=== PATIENT | female | born 1995 | race Caucasian/White ===

== ENCOUNTER 2024-02-01 11:55 | Inpatient (IN) | payer OTHER, SELFPAY ==
--- NOTE | ~2024-02-01 | CT_ITS ---
EXAMINATION: CT ABDOMEN AND PELVIS WITH CONTRAST CLINICAL INFORMATION: Abdominal pain, question appendectomy COMPARISON: None available. TECHNIQUE: Multidetector volumetric images were obtained from the superior aspect of the liver through the pubic symphysis following administration 85 mL of Omnipaque 350 intravenous contrast. Sagittal and coronal reformatted images were obtained on the technologist's workstation. Oral contrast: No This CT examination was performed using dose optimization techniques as appropriate, variously including the following: *Automated exposure control *Adjustment of mA and/or kV according to patient size (this includes techniques or standardized protocols for targeted exams where dose is matched to indication/reason for exam; i.e. extremities or head) *Use of iterative reconstruction technique DLP: 748 mGy-cm FINDINGS: LUNG BASES: The visualized lung bases are unremarkable. LIVER, GALLBLADDER, AND BILIARY TREE: The liver is normal in size, shape, and attenuation. No focal hepatic lesion or biliary ductal dilatation is present. The gallbladder is unremarkable with no evidence of radiopaque gallstones, gallbladder wall thickening, or obvious pericholecystic inflammatory changes. PANCREAS: Unremarkable. SPLEEN: Unremarkable. ADRENAL GLANDS: Unremarkable. KIDNEYS AND URETERS: The kidneys are normal in size, shape, and attenuation. A punctate nonobstructing calculus is evident in the upper pole the right kidney. A few tiny bilateral low density renal lesions are likely cysts though too small to characterize. No hydronephrosis, hydroureter. No perinephric stranding. BLADDER: Unremarkable. GASTROINTESTINAL TRACT: There is submucosal hypodensity within a relatively featureless descending colon. The small bowel and appendix images normally. ABDOMINAL WALL: No significant hernia is appreciated. LYMPH NODES: Normal. VASCULAR: Unremarkable. PELVIC VISCERA: Unremarkable. OSSEOUS STRUCTURES: Unremarkable. CT/CT abdomen pelvis w IV con IMPRESSION: 1. No CT evidence of acute appendicitis. 2. Featureless descending colon with submucosal hypodensity, which can be seen with inflammatory bowel disease. Clinical correlation is advised. 3. Punctate nonobstructing right renal upper pole calculus. Fleischner guidelines were followed.
[2024-02-01 12:02] VITALS: BP 121/71; PULSE 65; RESP 16; TEMP 36.8; O2SAT 99; BMI 29.9
--- NOTE | 2024-02-01 12:04 | ED_ITS ---
HPI - General Adult General Chief complaint: Abdominal Pain Stated complaint: Vomiting, diarrhea Time Seen by Provider: 02/01/24 14:48 Source: patient Mode of arrival: ambulatory Limitations: no limitations History of Present Illness HPI narrative: 28-year-old female without significant medical history presents with nausea, vomiting, diarrhea and diffuse abdominal discomfort that started yesterday. Patient reports she has not been able to eat or drink point as she does not feel well and does not have much of an appetite. Has noted blood in her stool and in the toilet a few times. She reports that yesterday at home she felt like she may have had a fever however did not take her temperature. No one is sick at home. Denies chest pain, shortness of breath, hematemesis,changes in urinary habits or bowel habits, headache, vision changes, dizziness. Smokes marijuanna daily. No recent antibiotics Related Data Allergies Allergy/AdvReac Type Severity Reaction Status Date / Time No Known Allergies Allergy Verified 02/01/24 12:07 Review of Systems 2 Review of Systems: Yes all other systems are reviewed and are negative PMFSH Past Medical History Attestation statement: The following information was validated with the patient. Source: old records reviewed and nursing notes reviewed Social History Social History Alcohol intake: current Smoked in Last 30 Days: No Use of substances other than those prescribed or required for medical reasons: Yes Substance Use Type: Marijuana Advance Directives: No Advance Directives Information Provided: No Patient : No Physical Exam ED Vital Signs: Vital Signs - 24 hr 02/01/24 12:02 02/01/24 15:00 Temperature 98.3 F Pulse Rate 65 69 Respiratory Rate 16 12 Blood Pressure 121/71 126/72 Pulse Oximetry 99 99 Oxygen Delivery Method Room Air Room Air BMI result Body Mass Index 29.9 vss Appearance: Alert.? Oriented X3.? No acute distress.? Head: Normocephalic, atraumatic, no step-offs or deformities Eyes: Pupils equal, round and reactive to light.? Neck: Normal inspection.? Neck supple.? CVS: Normal heart rate and rhythm.? Pulses normal.? Respiratory: No respiratory distress.? Breath sounds normal.? Abdomen: Soft and diffuse abdominal discomfort .? Skin: Skin warm and dry.? Normal skin color.? Normal skin turgor.? Extremities: No lower extremity edema.? No calf ttp. 5/5 strength to bilateral upper and lower extremities Neuro: Oriented X 3.? No motor deficit.? No sensory deficit. CN 2-12 intact Course Course Course Narrative: RME- 28 year old female presents for evaluation of left sided abdominal pain and vomiting and diarrhea since last night. Plan for virals wabs and labs, HCG Reevaluation(s) Reevaluation #1: CBC w/ leukocytosis and left shift ? reactive from n/v. Chemistry unremarkable. Lipase wnl. BHCG -. flu/covid/rsv negative. UA and abd ct pending. Time: 15:01 Reevaluation #2: I did discuss this case with GI Dr. Beebe who recommends adding GI studies, and C diff. Patient will likely need a colonoscopy. Since she is having issues with tolerating food by mouth GI recommends hospital admission they will follow while in the hospital. No indication for antibiotics at this time. UA pending. Stool studies pending Time: 16:03 Medications Administered Generic Name Dose Route Start Last Admin Trade Name Freq PRN Reason Stop Dose Admin Sodium Chloride 1,000 mls @ 999 mls/hr 02/01/24 15:00 02/01/24 15:27 Ns IV 02/01/24 16:00 999 mls/hr .[id number] CHAI Administration Discontinued Medications Generic Name Dose Route Start Last Admin Trade Name Freq PRN Reason Stop Dose Admin Iohexol 100 ml 02/01/24 15:18 02/01/24 15:18 Iohexol 350 Mg/Ml 100 Ml Infus..Btl IV 02/01/24 15:19 85 ml ONCE ONE Administration Ondansetron HCl 4 mg 02/01/24 15:00 02/01/24 15:27 Ondansetron Hcl 4 Mg/2 Ml Vial IVPUSH 02/01/24 15:01 4 mg ONCE ONE Administration Medical Decision Making Medical Decision Making [facility] Narrative: 1456 28 year old female presents w/ abd pain, nausea, vomiting, diarrhea, poor po intake since last night PE- diffuse abd discomfort Hx and PE concerning for possible viral illness, obstruction, gastroenteritis, flu versus COVID versus RSV vs ibs vs ibd. Unlikely acute abdomen. Will rule out pancreatitis, diverticulitis. Unlikely cholecystitis, appendicitis. Will rule out metabolic derangements, urinary tract infection Plan labs, urine, imaging, viral Differential Diagnosis Differential Diagnoses: The differential diagnosis associated with the presentation includes Hx and PE concerning for possible viral illness, obstruction, gastroenteritis, flu versus COVID versus RSV vs ibs vs ibd. . Unlikely acute abdomen. Will rule out pancreatitis, diverticulitis. Unlikely cholecystitis, appendicitis. Will rule out metabolic derangements, urinary tract infection Admission/Observation Consideration of admission/observation: Escalation of care including admission/observation considered Consult Healthcare Provider Management of the patient was discussed with: Saw Superintendent (GI ) Lab Data MDM Lab Attestation statement: I reviewed the patient's lab results. 02/01/24 12:12 02/01/24 12:12 Labs: Lab Results 02/01/24 02/01/24 02/01/24 Range/Units 12:12 14:56 15:07 WBC 16.8 H (4.8-10.8) X10*3/uL RBC 4.67 (4.20-5.50) X10*6/uL Hgb 13.4 (12.0-16.0) g/dl Hct 38.5 (37.0-47.0) % MCV 82.4 (80.0-98.0) fL MCH 28.7 (27.0-33.0) pg MCHC 34.8 (31.0-35.0) g/dl RDW 13.5 (11.0-16.0) % Plt Count 413 H (160-400) X10*3/uL MPV 9.6 (9.4-12.3) fL Immature Gran % (Auto) 0.4 (0.0-0.4) % Neut % (Auto) 90.5 H (45-73) % Lymph % (Auto) 6.2 L (20-40) % Falls % (Auto) 2.7 (2-11) % Eos % (Auto) 0.0 (0-4) % Baso % (Auto) 0.2 (0-2) % Lymph # (Auto) 1.0 L (1.2-4.9) X10*3/uL Falls # (Auto) 0.5 (0.1-1.2) X10*3/uL Eos # (Auto) 0.0 (0.0-0.4) X10*3/uL Baso # (Auto) 0.0 (0.0-0.2) X10*3/uL Abs Immat Gran (auto) 0.07 H (0.00-0.03) X10*3/uL Absolute Neuts (auto) 15.2 H (2.0-8.3) x10*3/uL Absolute Nucleated RBC 0.000 (0.0-0.012) X10*3/uL Nucleated RBC % (auto) 0.0 (0.0-0.2) /100WBC Smear Tech's Comments VERIFIED Sodium 141 (135-145) mmol/L Potassium 4.1 (3.3-5.1) mmol/L Chloride 111 H (96-108) mmol/L Carbon Dioxide 19 L (22-29) mmol/L Anion Gap 15 (12-20) BUN 9 (9-16) mg/dL Creatinine 0.75 (0.5-1.4) mg/dL Estim Creat Clear Calc 119.7 Estimated GFR > 60 Random Glucose 129 H (60-115) mg/dL Lactic Acid 1.0 (0.5-2.0) mmol/L Calcium 9.9 (8.4-10.2) mg/dL Total Bilirubin 0.4 (0.0-1.0) mg/dL AST 17 (5-31) U/L ALT 15 (0-31) U/L Alkaline Phosphatase 76 (39-117) U/L Total Protein 8.2 H (6.5-8.0) g/dL Albumin 4.7 (3.5-5.0) g/dL Lipase 19 (8-78) U/L Beta HCG, Quant < 2 mIU/mL Stool Occult Blood NEGATIVE (NEGATIVE) Influenza Type A (PCR) NEGATIVE (Negative) Influenza Type B (PCR) NEGATIVE (Negative) RSV RNA Qual (PCR) NEGATIVE (Negative) SARS-CoV-2 RNA (RT-PCR) NEGATIVE (Negative) Independent Interpretation I performed an independent interpretation of an: CT Scan Radiology Impression Discussion of test interpretation with radiology: I have reviewed the radiologist's reading. External Record Review External record reviewed: Inpatient record, Office record, Outpatient record, Prior outpatient labs, Prior outpatient radiology, Primary care record and Outside ED record Critical Care Time Critical Care Time Critical Care Time: Yes Total Critical Care Time: 40 Attestation: I attest to this time spent taking care of the patient, obtaining history, physical, reviewing labs, imaging, speaking to my attending, speaking to specialist. Discharge Plan Discharge Clinical Impression: Abdominal pain, Nausea & vomiting Patient Disposition: Admitted As Inpatient
[2024-02-01 12:18] LABS: Basophils Percent Auto 0.2 % (0-2); Hematocrit 38.5 % (37.0-47.0); Hemoglobin 13.4 g/dl (12.0-16.0); Imm Gran Abs Auto 0.07 X10*3/uL (0.00-0.03); Imm Gran Pct Auto 0.4 % (0.0-0.4); Lymphocytes Percent Auto 6.2 % (20-40); MANUAL DIFF FLAG SCAN; Mean Corpuscular HGB Conc 34.8 g/dl (31.0-35.0); Mean Corpuscular Hemoglobin 28.7 pg (27.0-33.0); Mean Corpuscular Volume 82.4 fL (80.0-98.0); Mean Platelet Volume 9.6 fL (9.4-12.3); Monocytes Absolute Auto 0.5 X10*3/uL (0.1-1.2); Monocytes Percent Auto 2.7 % (2-11); Neutrophils Absolute Auto 15.2 x10*3/uL (2.0-8.3); Neutrophils Percent Auto 90.5 % (45-73); Platelet Count 413 X10*3/uL (160-400); Red Blood Count 4.67 X10*6/uL (4.20-5.50); Red Cell Distribution Width 13.5 % (11.0-16.0); SCAN SMEAR FLAG 1; White Blood Count 16.8 X10*3/uL (4.8-10.8)
[2024-02-01 12:34] LABS: SLIDE REVIEW VERIFIED
[2024-02-01 12:39] LABS: Alanine Aminotransferase 15 U/L (0-31); Albumin Level 4.7 g/dL (3.5-5.0); Alkaline Phosphatase 76 U/L (39-117); Anion Gap 15 (12-20); Aspartate Amino Transferase 17 U/L (5-31); Bilirubin Total 0.4 mg/dL (0.0-1.0); Blood Urea Nitrogen 9 mg/dL (9-16); Calcium 9.9 mg/dL (8.4-10.2); Carbon Dioxide 19 mmol/L (22-29); Chloride 111 mmol/L (96-108); Creatinine Clr Calc Pharmacy 119.7; Estimated Glomerular Filt Rate > 60; Glucose Random 129 mg/dL (60-115); Lipase 19 U/L (8-78); Potassium 4.1 mmol/L (3.3-5.1); Sodium 141 mmol/L (135-145); Total Protein 8.2 g/dL (6.5-8.0)
[2024-02-01 12:40] LABS: HCG Quantitative < 2 mIU/mL
[2024-02-01 13:23] LABS: Influenza A PCR NEGATIVE (Negative); Influenza B PCR NEGATIVE (Negative); Resp Syncy Virus RNA Qual PCR NEGATIVE (Negative); SARS COV2 PCR INHOUSE NEGATIVE (Negative)
[2024-02-01 15:00] VITALS: BP 126/72; PULSE 69; RESP 12; O2SAT 99
[2024-02-01 15:14] LABS: OBS Int Ctl Valid YES; OBS1 NEGATIVE (NEGATIVE)
[2024-02-01] MEDS: iohexoL 350 MG/ML 100 ML INFUS..BTL IV (15:18)
[2024-02-01] MEDS: ondansetron HCL 4 MG/2 ML VIAL IVPUSH (15:27)
[2024-02-01] MEDS: 0.9 % Sodium Chloride 1,000 ML 999 ML IV (15:27)
--- NOTE | 2024-02-01 16:33 | PHA.MEDREC ---
Pharmacy Consult ? Medication Reconciliation Pharmacy has completed the medication reconciliation. spoke with patient to confirm medications.
[2024-02-01 16:43] LABS: C Reactive Protein 0.11 mg/dL (< or = 0.50)
--- NOTE | 2024-02-01 17:19 | P.HPHOSP_ITS ---
History of Present Illness Date of Service: 02/01/24 Chief Complaint: bloody stools/intractable vomiting 28-year-old female without significant medical history presents with nausea, vomiting, diarrhea and diffuse abdominal discomfort that started yesterday. Patient reports she has not been able to eat or drink point as she does not feel well and does not have much of an appetite. Has noted blood in her stool and in the toilet a few times. She reports that yesterday at home she felt like she may have had a fever however did not take her temperature. No one is sick at home. Denies chest pain, shortness of breath, hematemesis,changes in urinary habits or bowel habits, headache, vision changes, dizziness. Smokes marijuanna daily. No recent antibiotics In ER, unable to keep anything down orally. Will be admitted for IV volume repletion and GI consult in a.m. Review of Systems 2 Review of Systems: Denies chest pain Denies shortness of breath Admits nausea vomiting diarrhea Denies fever chills PMFSH Social History Alcohol intake: current Smoked in Last 30 Days: No Use of substances other than those prescribed or required for medical reasons: Yes Substance Use Type: Marijuana Advance Directives: No Advance Directives Information Provided: No Patient : No Meds Allergies Allergy/AdvReac Type Severity Reaction Status Date / Time No Known Allergies Allergy Verified 02/01/24 12:07 Active Medications: Current Medications Bupropion HCl (Bupropion Hcl Xl 150 Mg Tab.Er.24h) 150 mg PO DAILY [facility] Sertraline HCl (Sertraline Hcl 100 Mg Tablet) 200 mg PO DAILY [facility] Home Medications Medication Instructions Recorded Confirmed Last Taken Type bupropion HCl 150 mg 24 hr tablet, 150 mg PO QAM 02/01/24 02/01/24 Unknown History extended release sertraline 100 mg tablet 200 mg PO DAILY 02/01/24 02/01/24 Unknown History Physical Exam 2 Vital Signs and Narrative: Vital Signs: Last Vital Signs Temp 98.3 F 02/01/24 12:02 Pulse 69 02/01/24 15:00 Resp 12 02/01/24 15:00 BP 126/72 02/01/24 15:00 Pulse Ox 99 02/01/24 15:00 O2 Del Method Room Air 02/01/24 15:00 BMI result Body Mass Index 29.9 Const: Other: Awake alert no acute distress Resp: Other: Clear to auscultation bilaterally no rales rhonchi or wheezes Cardio: Other: No S4; positive S1-S2; no S3 murmurs rubs or gallops GI: Other: Soft nontender nondistended normoactive bowel sounds Extrem: Other: No edema bilaterally Results Labs 02/01/24 12:12 02/01/24 12:12 Labs: Laboratory Results - last 24 hr 02/01/24 02/01/24 02/01/24 12:12 14:56 15:07 MCV 82.4 MCH 28.7 MCHC 34.8 RDW 13.5 Plt Count 413 H MPV 9.6 Immature Gran % (Auto) 0.4 Neut % (Auto) 90.5 H Lymph % (Auto) 6.2 L [place] % (Auto) 2.7 Eos % (Auto) 0.0 Baso % (Auto) 0.2 Lymph # (Auto) 1.0 L [place] # (Auto) 0.5 Eos # (Auto) 0.0 Baso # (Auto) 0.0 Abs Immat Gran (auto) 0.07 H Absolute Neuts (auto) 15.2 H Absolute Nucleated RBC 0.000 Nucleated RBC % (auto) 0.0 Smear Tech's Comments VERIFIED Anion Gap 15 Estim Creat Clear Calc 119.7 Estimated GFR > 60 Random Glucose 129 H Lactic Acid 1.0 Calcium 9.9 Total Bilirubin 0.4 AST 17 ALT 15 Alkaline Phosphatase 76 C-Reactive Protein 0.11 Total Protein 8.2 H Albumin 4.7 Lipase 19 Beta HCG, Quant < 2 Stool Occult Blood NEGATIVE Influenza Type A (PCR) NEGATIVE Influenza Type B (PCR) NEGATIVE RSV RNA Qual (PCR) NEGATIVE SARS-CoV-2 RNA (RT-PCR) NEGATIVE Imaging Radiologist's Impressions: Impressions Abdomen/Pelvis CT 02/01/24 15:[address]: 1[address] evidence of acute appendicitis. 2. Featureless descending colon with submucosal hypodensity, which can be seen with inflammatory bowel disease. Clinical correlation is advised. 3. Punctate nonobstructing right renal upper pole calculus. Fleischner guidelines were followed. Assessment and Plan (1) Nausea & vomiting: Qualifiers: Vomiting type: unspecified Qualified Code(s): R11.2 - Nausea with vomiting, unspecified Status: Acute (2) Anxiety: Status: Acute Plan 28-year-old female with past medical history significant only for anxiety presents with 2 days of nausea vomiting diffuse abdominal comfort diarrhea. She stated after the 1st stool, she had a bloody mucousy stool. The vomiting has persisted. In the ER she was unable to take anything p.o.. She will be admitted for GI consult and volume repletion 1. Intractable vomiting/bloody stools Patient denies any significant family history related to colon issues. She states grandfather may have had colon cancer however she is unsure -IV volume repletion with lactated Ringer's -NPO after midnight -GI consult in a.m. -follow renals/divalents 2. Anxiety She states this has been well control on current therapies. She does not believe her anxiety is related to her vomiting -continue Wellbutrin/sertraline at outpatient dosing -follow clinically Full code Ambulatory Patient will require 2 midnights going forward of inpatient stay for volume repletion and specialist consultation and with regards to her bloody stools. This can not be achieved a lesser acute setting Quality Stroke Does the patient have a stroke diagnosis?: No VTE Prior VTE?: No VTE Risk Level:: Medical - low VTE Device Contraindication: Treatment Not Indicated VTE Drug Contraindication: Treatment Not Indicated
[2024-02-01 17:32] LABS: Erythrocyte Sedimentation Rate 19 MM/HR (0-20)
[2024-02-01 17:40] VITALS: BP 128/77; PULSE 84; RESP 15; O2SAT 98
[2024-02-01] MEDS: Lactated Ringers 1,000 ML 125 ML IVCONT (17:47)
[2024-02-01] MEDS: Morphine Sulfate 4 MG/ML CARTRIDGE IVPUSH (17:47)
--- NOTE | 2024-02-01 18:33 | PC.NURSE ---
pt aware of need for stool sample, instructed to ring her call lebron when ready to go
--- NOTE | 2024-02-01 18:52 | PC.NURSE ---
pt NPO at midnight for planned colonoscopy prep tomorrow. pt tearful, aware of plan of care. 20G in LAC with LR infusing at 125 ml/hr. pt eating ice chips and jello at bedside, aware she has a regular diet but reports she doesn't trust her stomach . cooperative, ambulating independently to .
[2024-02-01 19:50] VITALS: BP 128/70; PULSE 67; RESP 17; TEMP 36.9; O2SAT 98
[2024-02-01 20:38] VITALS: BP 126/65; PULSE 63; RESP 18; TEMP 37.1; O2SAT 98
[2024-02-02 01:27] LABS: CDiff Gene PCR NEGATIVE (Negative)
[2024-02-02] MEDS: Lactated Ringers 1,000 ML 125 ML IVCONT ×2 (02:13→15:10)
--- NOTE | 2024-02-02 06:42 | PC.NURSE ---
Assumed care of pt at 0315. PT had an uneventful shifts. Fluids continues to run at 125mls/hr. PT OOB independently to use bathroom. plan of care ongoing
--- NOTE | 2024-02-02 07:02 | PM.GICN ---
History of Present Illness Data of Consult Service Date: 02/02/24 Requesting physician: Carlos Thibodeaux Primary Care Provider: LAURITA Hodge HPI Reason for consult: Bloody stools 28 YF [place] [facility] [place] 02[place]01[place]24 with nausea, vomiting, diarrhea and diffuse abdominal pain x 1 day. Pt noted lower abdominal cramps followed by a large amount of diarrhea and vomiting. She reports having 7-8 episodes of diarrhea. Noted BRB and mucous with BM the following day. Patient reported she had not been able to eat or drink point due to a lack of appetite and not feeling well. Nausea and diarrhea has improved today (feels 60% better) and has been taking ice chips. She continues to have LUQ pain. Pt noted subjective fever (did not take her temperature) and blood in her stool and in the toilet a few times. Pt denied chest pain, shortness of breath, hematemesis, changes in urinary habits, headache, vision changes, dizziness or similar illness in family members. Smokes marijuanna daily. No recent antibiotics In ER, pt was unable to keep anything down orally and was admitted for IV volume repletion and further evaluation 02/01/[address] SCAN SHOWED: 1. No CT evidence of acute appendicitis. 2. Featureless descending colon with submucosal hypodensity, which can be seen with inflammatory bowel disease. Clinical correlation is advised. 3. Punctate nonobstructing right renal upper pole calculus. Review of Systems Review of Systems: Denies chest pain Denies shortness of breath Admits nausea vomiting diarrhea Denies fever chills PMFSH Past Medical History Medical History (Updated 02/03/24 @ 13:36 by Linh Magana RN) Depression Complex posttraumatic stress disorder Surgical History Surgical History (Updated 02/03/24 @ 13:34 by Linh Magana RN) Hx of tubal ligation Hx of breast augmentation H/O wisdom tooth extraction Social History Social History Alcohol intake: current Patient Tobacco Use Status: Never used Tobacco Smoked in Last 30 Days: No Use of substances other than those prescribed or required for medical reasons: Yes Substance Use Type: Marijuana Advance Directives: No Advance Directives Information Provided: No Nutrition Risks: No Nutritional Risk Patient : No service: No Meds Allergies Allergy/AdvReac Type Severity Reaction Status Date / Time No Known Allergies Allergy Verified 02/03/24 13:32 Active Medications: Current Medications Bupropion HCl (Bupropion Hcl Xl 150 Mg Tab.Er.24h) 150 mg PO DAILY [facility] Lactated Ringer's (Lr) 1,000 mls @ 125 mls/hr IVCONT .Q8H [facility] Last Admin: 02/02/24 02:13 Dose: 125 mls/hr Morphine Sulfate (Morphine Sulfate 4 Mg/Ml Cartridge) 4 mg IVPUSH Q3H PRN; Protocol PRN Reason: Pain, Severe (Pain Scale 7-10) Last Admin: 02/01/24 17:47 Dose: 4 mg Sertraline HCl (Sertraline Hcl 100 Mg Tablet) 200 mg PO DAILY [facility] Sodium Chloride (0.9 % Sodium Chloride Flush 3 Ml Syringe) 3 ml IVFLUSH QSHIFT [facility] Last Admin: 02/02/24 01:00 Dose: Not Given Home Medications ?Medication ?Instructions ?Recorded ?Confirmed ?Last Taken ?Type bupropion HCl 150 mg 24 hr tablet, 150 mg PO QAM 02/01/24 02/03/24 Unknown History extended release sertraline 100 mg tablet 200 mg PO DAILY 02/01/24 02/03/24 Unknown History Physical Exam Vital Signs: Vital Signs: Last Vital Signs Temp 98.8 F 02/01/24 20:38 Pulse 63 02/01/24 20:38 Resp 18 02/01/24 20:38 BP 126/65 02/01/24 20:38 Pulse Ox 98 02/01/24 20:38 O2 Del Method Room Air 02/01/24 20:38 BMI result Body Mass Index 29.9 Const: Other: Awake alert no acute distress Resp: Other: Clear to auscultation bilaterally no rales rhonchi or wheezes Cardio: Other: No S4; positive S1-S2; no S3 murmurs rubs or gallops GI: Other: Soft nontender nondistended normoactive bowel sounds Extrem: Other: No edema bilaterally Results Labs 02/01/24 12:12 02/01/24 12:12 Labs: Short CBC 02/01/24 Range/Units 12:12 WBC 16.8 H (4.8-10.8) X10*3/uL Hgb 13.4 (12.0-16.0) g/dl Hct 38.5 (37.0-47.0) % Plt Count 413 H (160-400) X10*3/uL BMP 02/01/24 12:12 Sodium 141 Potassium 4.1 Chloride 111 H Carbon Dioxide 19 L BUN 9 Creatinine 0.75 Calcium 9.9 Liver Function 02/01/24 Range/Units 12:12 Total Bilirubin 0.4 (0.0-1.0) mg/dL AST 17 (5-31) U/L ALT 15 (0-31) U/L Alkaline Phosphatase 76 (39-117) U/L Albumin 4.7 (3.5-5.0) g/dL Assessment and Plan (1) Nausea & vomiting: Qualifiers: Vomiting type: unspecified Qualified Code(s): R11.2 - Nausea with vomiting, unspecified Status: Acute (2) Abdominal pain: Status: Acute (3) Abnormal CT scan, gastrointestinal tract: Status: Acute (4) Rectal bleeding: Status: Acute Plan 28 YF admitted [place] [facility] [place] 02[place]01[place]24 with nausea, vomiting, diarrhea and diffuse abdominal pain x 1 day. Patient reported she had not been able to eat or drink point due to a lack of appetite and not feeling well. Pt noted subjective fever (did not take her temperature) and blood in her stool and in the toilet a few times. In ER, pt was unable to keep anything down orally and was admitted for IV volume repletion and further evaluation Abd CT scan showed Featureless descending colon with submucosal hypodensity, which can be seen with inflammatory bowel disease. Clinical correlation is advised. Pt reports improvement in abdominal pain and denies diarrhea. Pt likely has acute infectious gastroenteritis which is resolving. She may have superimposed ischemic colitis due to dehydration for vomiting and diarrhea Rectal bleeding is likely due to hemorrhoids versus acute colitis. IBD is unlikely given acute course. RECOMMENDATIONS: 1. Agree with IV fluids and anti-emetics 2. Start a clear liquid diet and give GoLYTELY prep today. Pt is scheduled for a colonoscopy on 02/03/24 at 2 pm. Colonoscopy procedure and potential complications including bleeding, perforation, reaction to anesthetic medications were reviewed with the patient. hospital course: Patient was started on bowel rest, IV hydration, subsequently prepped with GoLYTELY and colonoscopy done: CT abdomen: Featureless descending colon with submucosal hypodensity, Colonoscopy showed resolving colitis, Random biopsies were obtained from the right and left colon showed: A. Colon, right, biopsy: Colonic mucosa within normal limits. B. Colon, left, biopsy: Focal active colitis, mucosal congestion and regenerative changes. Comment: No chronic injury or dysplasia is present. Patient with resolving colitis, asymptomatic, defer antibiotics,, tolerating diet, blood culture negative at 48 hours. She was discharged home. Procedures Date of Service Date of Service: 04/11/24
[2024-02-02 07:22] VITALS: BP 128/63; PULSE 87; RESP 17; TEMP 36.2; O2SAT 98
--- NOTE | 2024-02-02 08:50 | PC.NURSE ---
pt a/o x 4 no sob/michael noted. no n/v noted. speaks in full sentences. amb (i) gait steady to bathroom and btb. iv fluids infusing. pt has been npo. pt aware of plan of care. will continue to monitor.
[2024-02-02] MEDS: Sertraline HCL 100 MG TABLET 200 MG PO (09:03)
[2024-02-02] MEDS: buPROPion HCl XL 150 MG TAB.ER.24H PO (09:04)
[2024-02-02] MEDS: Morphine Sulfate 4 MG/ML CARTRIDGE IVPUSH ×2 (09:07→17:00)
--- NOTE | 2024-02-02 09:51 | MHC.CM.PN ---
CM met with Patient at bedside, in ED Over. Patient lives in a duplex with her Ex Partner/Kelsey who will transport at time of dc. Patient's Mother/Lara is the HCP and the PCP/ICE SKATING TEACHER is Maya Peraza. 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 CM has initiated and will follow for dc planning.
[2024-02-02 14:24] VITALS: BP 133/60; PULSE 70; RESP 16; TEMP 36; O2SAT 98
--- NOTE | 2024-02-02 14:53 | PC.NURSE ---
pt seen by dr. zendejas aware of plan of care for change in diet for today (change to clear liquid) and pt will be npo after midnight for [id number] in [place]
--- NOTE | 2024-02-02 15:23 | P.PNIM_ITS ---
Subjective Subjective Date of Service: 02/02/24 Interval History: Essentially no changes overnight. No further diarrhea Review of Systems Denies chest pain Denies shortness of breath Admits nausea vomiting diarrhea Denies fever chills Physical Exam 2 Vital Signs: Vital Signs: Last Vital Signs Temp 96.8 F 02/02/24 14:24 Pulse 70 02/02/24 14:24 Resp 16 02/02/24 14:24 BP 133/60 02/02/24 14:24 Pulse Ox 98 02/02/24 14:24 O2 Del Method Room Air 02/02/24 14:24 BMI result Body Mass Index 29.9 Const: Other: Awake alert no acute distress Resp: Other: Clear to auscultation bilaterally no rales rhonchi or wheezes Cardio: Other: No S4; positive S1-S2; no S3 murmurs rubs or gallops GI: Other: Soft nontender nondistended normoactive bowel sounds Extrem: Other: No edema bilaterally Objective Data Active Medications Bupropion HCl (Bupropion Hcl Xl 150 Mg Tab.Er.24h) 150 mg PO DAILY [facility] Last Admin: 02/02/24 09:04 Dose: 150 mg Documented By: INGA Lactated Ringer's (Lr) 1,000 mls @ 125 mls/hr IVCONT .Q8H [facility] Last Admin: 02/02/24 15:10 Dose: 125 mls/hr Documented By: FREDY Morphine Sulfate (Morphine Sulfate 4 Mg/Ml Cartridge) 4 mg IVPUSH Q3H PRN; Protocol PRN Reason: Pain, Severe (Pain Scale 7-10) Last Admin: 02/02/24 09:07 Dose: 4 mg Documented By: INGA Polyethylene Glycol/Electrolytes (Peg 3350/Na Sulf,Bicarb,Cl/Kcl 4,000 Ml Soln.Recon) 4,000 ml PO ONCE ONE Stop: 02/02/24 15:31 Sertraline HCl (Sertraline Hcl 100 Mg Tablet) 200 mg PO DAILY [facility] Last Admin: 02/02/24 09:03 Dose: 200 mg Documented By: INGA Sodium Chloride (0.9 % Sodium Chloride Flush 3 Ml Syringe) 3 ml IVFLUSH QSHIFT [facility] Last Admin: 02/02/24 15:14 Dose: Not Given Documented By: FREDY Non-Admin Reason: IV Running Labs 02/01/24 12:12 02/01/24 12:12 Labs: Laboratory Results - last 24 hr 02/01/24 02/02/24 12:12 00:34 ESR 19 C-Reactive Protein 0.11 C. difficile Tox B Gene NEGATIVE Assessment and Plan (1) Nausea & vomiting: Status: Acute Plan 28-year-old female with past medical history significant only for anxiety presents with 2 days of nausea vomiting diffuse abdominal comfort diarrhea. She stated after the 1st stool, she had a bloody mucousy stool. The vomiting has persisted. In the ER she was unable to take anything p.o.. She will be admitted for GI consult and volume repletion 1. Intractable vomiting/bloody stools Patient denies any significant family history related to colon issues. She states grandfather may have had colon cancer however she is unsure -IV volume repletion with lactated Ringer's -NPO after midnight... GoLYTELY prep today -follow renals/divalents 2. Anxiety She states this has been well control on current therapies. She does not believe her anxiety is related to her vomiting -continue Wellbutrin/sertraline at outpatient dosing -follow clinically Full code Ambulatory Patient will require 2 midnights going forward of inpatient stay for volume repletion and specialist consultation and with regards to her bloody stools. This can not be achieved a lesser acute setting Quality Stroke Does the patient have a stroke diagnosis?: No VTE Prior VTE?: No VTE Risk Level:: Medical - low VTE Device Contraindication: Treatment Not Indicated VTE Drug Contraindication: Treatment Not Indicated
[2024-02-02 16:00] VITALS: BP 128/77; PULSE 63; RESP 16; TEMP 36.8; O2SAT 97
[2024-02-02] MEDS: PEG 3350/Na Sulf,Bicarb,Cl/KCL 4,000 ML SOLN.RECON 4000 ML PO (17:16)
[2024-02-02 19:47] VITALS: BP 141/73; PULSE 72; RESP 16; TEMP 36.2; O2SAT 97
[2024-02-02 23:45] VITALS: BP 116/57; PULSE 58; RESP 16; TEMP 36.9; O2SAT 97
--- NOTE | 2024-02-03 02:26 | PC.NURSE ---
Patient is alert and oriented x3, VSS. Patient denies any pain at present, ambulates independently to use restroom. Plan for colonoscopy in am, patient is aware for need for NPO after midnight. Plan of care ongoing
[2024-02-03] MEDS: Lactated Ringers 1,000 ML 125 ML IVCONT ×2 (03:14→10:34)
[2024-02-03 05:37] VITALS: BP 115/67; PULSE 72; RESP 16; TEMP 36.8; O2SAT 98
[2024-02-03 08:46] VITALS: BP 123/63; PULSE 77; RESP 18; TEMP 36.3; O2SAT 95
[2024-02-03] MEDS: Sertraline HCL 100 MG TABLET 200 MG PO (09:42)
[2024-02-03] MEDS: buPROPion HCl XL 150 MG TAB.ER.24H PO (09:43)
[2024-02-03] MEDS: 0.9 % Sodium Chloride Flush 3 ML SYRINGE IVFLUSH (09:43)
--- NOTE | 2024-02-03 11:08 | PC.NURSE ---
Pt a+o x3, she denies pain at this time. Pt up to use bathroom, no bloody stools reported. Pt remains NPO, LR running at 125 ml/hr, awaiting colonoscopy. Pt aware of plan. vss.
--- NOTE | 2024-02-03 12:17 | PC.NURSE ---
Report given to Short Stay Surgery. Tentative pick-up for procedure between 1230/1300. Pt aware of plan.
--- NOTE | 2024-02-03 12:47 | PC.NURSE ---
Report given to Short Stay Surgery. Tentative pick up and delivery driver time between 1500/1530. Pt's daughter and is at his bedside and is aware of the plan. Pt resting quietly.
--- NOTE | 2024-02-03 13:08 | PC.NURSE ---
Pt taken to [facility] for colonoscopy.
--- NOTE | 2024-02-03 13:59 | P.CONAN_ITS ---
HPI - Anesthesia Eval Consult details Narrative: 28 yo F admitted with intractable nausea and vomiting. Vapes but last use on 01/30. [facility] Active Problems Active Problems: All Active Problems (Updated 02/03/24 @ 13:36 by Linh Magana RN) Abnormal CT scan, gastrointestinal tract (Acute) Rectal bleeding (Acute) Anxiety (Acute) Nausea & vomiting (Acute) Abdominal pain (Acute) Past Medical History Medical History (Updated 02/03/24 @ 13:36 by Linh Magana RN) Depression Complex posttraumatic stress disorder Family History Family history of problems with anesthesia: No Surgical History Surgical History (Updated 02/03/24 @ 13:34 by Linh Magana RN) Hx of tubal ligation Hx of breast augmentation H/O wisdom tooth extraction History of Problems with Anesthesia: No Social History Social History Alcohol intake: current Patient Tobacco Use Status: Never used Tobacco Smoked in Last 30 Days: No Use of substances other than those prescribed or required for medical reasons: Yes Substance Use Type: Marijuana Advance Directives: No Advance Directives Information Provided: No Nutrition Risks: No Nutritional Risk Patient : No service: No Meds Allergies Allergy/AdvReac Type Severity Reaction Status Date / Time No Known Allergies Allergy Verified 02/03/24 13:32 Active Medications: Current Medications Bupropion HCl (Bupropion Hcl Xl 150 Mg Tab.Er.24h) 150 mg PO DAILY [facility] Last Admin: 02/03/24 09:43 Dose: 150 mg Lactated Ringer's (Lr) 1,000 mls @ 125 mls/hr IVCONT .Q8H [facility] Last Admin: 02/03/24 10:34 Dose: 125 mls/hr Morphine Sulfate (Morphine Sulfate 4 Mg/Ml Cartridge) 4 mg IVPUSH Q3H PRN; Protocol PRN Reason: Pain, Severe (Pain Scale 7-10) Last Admin: 02/02/24 17:00 Dose: 4 mg Ondansetron HCl (Ondansetron Hcl 4 Mg/2 Ml Vial) 4 mg IVPUSH Q4H PRN PRN Reason: Nausea and Vomiting Sertraline HCl (Sertraline Hcl 100 Mg Tablet) 200 mg PO DAILY [facility] Last Admin: 03/05/24 09:42 Dose: 200 mg Sodium Chloride (0.9 % Sodium Chloride Flush 3 Ml Syringe) 3 ml IVFLUSH QSHIFT [facility] Last Admin: 02/03/24 09:43 Dose: 3 ml Home Medications Medication Instructions Recorded Confirmed Last Taken Type bupropion HCl 150 mg 24 hr tablet, 150 mg PO QAM 02/01/24 02/03/24 Unknown History extended release sertraline 100 mg tablet 200 mg PO DAILY 02/01/24 02/03/24 Unknown History Exam Exam Date and Time: February 03, 2024 1400 Height,Weight and Vital Signs: Height 5 ft 6 in Weight 83.915 kg Last Vital Signs Temp 97.3 F 02/03/24 08:46 Pulse 77 02/03/24 08:46 Resp 18 02/03/24 08:46 BP 123/63 02/03/24 08:46 Pulse Ox 95 02/03/24 08:46 O2 Del Method Room Air 02/03/24 08:46 Pertinent Lab Results Pertinent Lab Results: Laboratory Tests 02/01/24 02/01/24 02/01/24 12:12 14:56 15:07 WBC 16.8 H RBC 4.67 Hgb 13.4 Hct 38.5 MCV 82.4 MCH 28.7 MCHC 34.8 RDW 13.5 Plt Count 413 H MPV 9.6 Immature Gran % (Auto) 0.4 Neut % (Auto) 90.5 H Lymph % (Auto) 6.2 L [place] % (Auto) 2.7 Eos % (Auto) 0.0 Baso % (Auto) 0.2 Lymph # (Auto) 1.0 L [place] # (Auto) 0.5 Eos # (Auto) 0.0 Baso # (Auto) 0.0 Abs Immat Gran (auto) 0.07 H Absolute Neuts (auto) 15.2 H Absolute Nucleated RBC 0.000 Nucleated RBC % (auto) 0.0 Smear Tech's Comments VERIFIED ESR 19 Sodium 141 Potassium 4.1 Chloride 111 H Carbon Dioxide 19 L Anion Gap 15 BUN 9 Creatinine 0.75 Estim Creat Clear Calc 119.7 Estimated GFR > 60 Random Glucose 129 H Lactic Acid 1.0 Calcium 9.9 Total Bilirubin 0.4 AST 17 ALT 15 Alkaline Phosphatase 76 C-Reactive Protein 0.11 Total Protein 8.2 H Albumin 4.7 Lipase 19 Beta HCG, Quant < 2 Stool Occult Blood NEGATIVE C. difficile Tox B Gene Influenza Type A (PCR) NEGATIVE Influenza Type B (PCR) NEGATIVE RSV RNA Qual (PCR) NEGATIVE SARS-CoV-2 RNA (RT-PCR) NEGATIVE 02/02/24 00:34 WBC RBC Hgb Hct MCV MCH MCHC RDW Plt Count MPV Immature Gran % (Auto) Neut % (Auto) Lymph % (Auto) [place] % (Auto) Eos % (Auto) Baso % (Auto) Lymph # (Auto) [place] # (Auto) Eos # (Auto) Baso # (Auto) Abs Immat Gran (auto) Absolute Neuts (auto) Absolute Nucleated RBC Nucleated RBC % (auto) Smear Tech's Comments ESR Sodium Potassium Chloride Carbon Dioxide Anion Gap BUN Creatinine Estim Creat Clear Calc Estimated GFR Random Glucose Lactic Acid Calcium Total Bilirubin AST ALT Alkaline Phosphatase C-Reactive Protein Total Protein Albumin Lipase Beta HCG, Quant Stool Occult Blood C. difficile Tox B Gene NEGATIVE Influenza Type A (PCR) Influenza Type B (PCR) RSV RNA Qual (PCR) SARS-CoV-2 RNA (RT-PCR) Airway Mallampati Class: I TM Dist: >3cm Neck ROM: Full Loose/Missing/Broken Teeth: No Heart: S1S2 Lungs: CTAB Assessment and Plan Assessment Anesthesia Assessment: Anesthesia Plan Discussed and Chart Reviewed Final Anesthetic Review Family History of Problems with Anesthesia: No History of Problems with Anesthesia: No NPO: Yes ASA Class: II Final Preanesthetic Review: No Changes in Pt Med Stat, Meds/Allgs Chart Reviewed, Consent Obtained/Reviewed and Anes Risks/Benef Reviewed Patient Risk: Low Procedure Risk: Low Anesthetic Plan Anesthetic Plan: MAC: and Agree w/ Assess. and Plan Disposition: Standard PACU
--- NOTE | 2024-02-03 14:10 | MHC.SHP ---
Pre-Procedural Eval Section A - 24 Hr Update-Section A only Date of Service: 02/03/24 The patient is an INPATIENT: Yes Changes since office visit: Yes New Medical Problems, Yes Changes in Medication and Yes Patient answered all questions; No Cold of Flu in the past 2 weeks The patient has been examined within 24 hours of the surgical procedure. The History & Physical has been completed within 30 days and I have reviewed it.: Yes Section B - Complete if H&P > 30 days Chief Complaint: Intractable vomiting Allergies: Allergies Allergy/AdvReac Type Severity Reaction Status Date / Time No Known Allergies Allergy Verified 02/03/24 13:32 Plan Diagnosis/Plan: Unchanged I have reviewed the history and physical and performed a pertinent physical examination on my patient. No changes have occurred unless specified. Time Spent With Patient Time: Total time managing care of this patient today ____ minutes.
--- NOTE | 2024-02-03 14:56 | W.PM.OPN ---
Operative Note Operative Note Date of Service: 02/03/24 Narrative: COLONOSCOPY TILL CECUM WITH BIOPSIES Pre-op diagnosis: Abdominal pain, diarrhea, rectal bleeding. Post-op diagnosis:? Resolving left-sided colitis Endoscopist:? Kenny Beebe MD Anesthesia:?MAC Consent: Indications for the procedure and potential complications of bleeding, perforation, reaction to medications and missed diagnosis were discussed with the patient and informed consent was obtained. Instrument: Olympus PCF H 190 L variable stiffness pediatric colonoscope Monitoring: Vital signs and clinical assessment, intermittent blood pressure monitoring, continuous EKG monitoring, Pulse oximetry and Carbon Dioxide monitoring were done throughout the procedure. Please see anesthesia flowsheet. Colon withdrawl time was 16 minutes. Procedure: The patient was placed in the left lateral decubitis position and pre-procedure medications were administered. After a digital rectal examination of the ano-rectum, the video colonoscope was inserted into the rectum and advanced through the colon to the cecum. The colonoscope was slowly withdrawn in a retrograde panoramic fashion and the colon mucosa was carefully examined including a retroflexed view of the rectum. Findings and interventions are described below. Procedure Difficulty: Without difficulty Findings: Terminal Ileum: Distal 5 cms was examined and appeared normal Cecum: Normal Ascending Colon: Normal Transverse Colon: Normal Descending Colon: Edema, patchy erythema and friable appearing mucosa in the left colon from 40 to 70 cms - random biopsies were obtained. Sigmoid Colon: Edema, patchy erythema and friable appearing mucosa in the left colon from 40 to 70 cms - random biopsies were obtained. Rectum: Normal Ano-rectum: Normal Colon preparation: Good after some irrigation [place] Bowel Preparation Scale Right colon; 2 Transverse colon: 2 Left colon; 2 (0 = Unprepared colon segment with mucosa not seen due to solid stool that cannot be cleared. 1 = Portion of mucosa of the colon segment seen, but other areas of the colon segment not well seen due to staining, residual stool and/or opaque liquid. 2 = Minor amount of residual staining, small fragments of stool and/or opaque liquid, but mucosa of colon segment seen well. 3 = Entire mucosa of colon segment seen well with no residual staining, small fragments of stool or opaque liquid) Impression and Post Procedure Diagnosis: Colonoscopy Findings: Resolving left sided colitis (likely infectious or ischemia) - random biopsies were obtained from the right and left colon Plan: Ok to discharge the patient home today. I will contact the patient with biopsy results. Repeat Colonoscopy in 15 years if biopsies are normal. Above findings were reviewed with the patient. BIOPSIES SHOWED: A. Colon, right, biopsy: Colonic mucosa within normal limits. B. Colon, left, biopsy: Focal active colitis, mucosal congestion and regenerative changes. Comment: No chronic injury or dysplasia is present
[2024-02-03 15:03] VITALS: BP 105/42; PULSE 58; RESP 17; TEMP 36.4; O2SAT 99
[2024-02-03 15:18] VITALS: BP 100/58; PULSE 51; RESP 17; TEMP 36.4; O2SAT 96
[2024-02-03 15:51] VITALS: BP 112/55; PULSE 82; RESP 18; TEMP 36.4; O2SAT 98
--- NOTE | 2024-02-03 15:54 | PC.NURSE ---
Pt brought back from [facility]. Pt a+o x3, vss, she denies pain at this time.
--- NOTE | 2024-02-03 17:20 | PC.NURSE ---
Pt given regular diet, tolerated well. Dr. Gatica was made awere.
--- NOTE | 2024-02-03 18:13 | P.DS_ITS ---
DS: Providers Provider Date of Service: 02/03/24 Date of admission: 02/01/24 17:15 Date of discharge: 02/03/24 Primary care physician: LAURITA Hodge Consults: 02/01/24 17:17 Consult to Gastroenterology Routine Consulting Provider: Kenny Beebe Reason for consultation: bloody stool Has provider been notified: No Attending physician on discharge: Mamadou Gatica Discharging clinician: Mamadou Gatica DS: Diagnosis Discharge Diagnosis (1) Nausea & vomiting: Status: Acute (2) Abdominal pain: Status: Acute (3) Abnormal CT scan, gastrointestinal tract: Status: Acute (4) Rectal bleeding: Status: Acute DS: Summary Hospital Course Hospital Course: hospital course: Patient was admitted for intractable nausea vomiting and diarrhea: Patient was started on bowel rest, IV hydration and seen by GI ,subsequently patient was prepped with GoLYTELY and colonoscopy done: CT abdomen: Featureless descending colon with submucosal hypodensity, Colonoscopy so shows resolving colitis, random biopsies were obtained from the right and left colon: Discussed with GI- patient has resolving colitis, asymptomatic, defer antibiotics,, tolerating diet, blood culture negative at 48 hours. Leukocytosis: Monitor CBC out patiently possibly reactive to colitis. Monitor CBC out patiently, follow-up with PCP and GI. Above management discussed with the patient in detail length she understand and in agreement with the above plan, time spent 50 minute. Time Attestation Discharge Coordination Time: discharge time of _50___ minutes Quality: Safe Use of Opioids Does Pt have an Active Cancer Diagnosis on the Problem List?: No Quality: Stroke Does the patient have a stroke diagnosis?: No Physical Exam Vital Signs: Vital Signs: Last Vital Signs Temp 97.6 F 02/03/24 15:51 Pulse 82 02/03/24 15:51 Resp 18 02/03/24 15:51 BP 112/55 L 02/03/24 15:51 Pulse Ox 98 02/03/24 15:51 O2 Del Method Room Air 02/03/24 15:51 BMI result Body Mass Index 29.9 Appearance: Alert.? Oriented X3.? not in distress.? cvs: rrr, [id number]. res: clear to auscultation ,no rhonchii or wheezing abd: no rebound or guarding ,nt, bs present. ext pulses present , no cyanosis . neuro: axo3 , nonfocal. DS: Data Data Completed and Pending Pending studies at discharge: Pending at discharge 02/03/24 14:45 Surgical [PTH] Routine Labs on day of discharge: Laboratory Results - last 24 hr 02/02/24 00:34 Stl C. cayetanensis PCR Cancelled Stool Rotavirus A PCR Cancelled Stl Adenov F 40/41 PCR Cancelled Stool Astrovirus (PCR) Cancelled Stool Campylobacter PCR Cancelled Stool Cryptosporidium PCR Cancelled Stl Sh Tox Pr E STEC PCR Cancelled Stool E coli O157 PCR Cancelled Stl Enterotoxigenic E PCR Cancelled Stool EPEC (PCR) Cancelled Stool EAEC (PCR) Cancelled Stl E. histolytica PCR Cancelled Stool Giardia Lamblia PCR Cancelled Stl P. shigelloides PCR Cancelled Stool Salmonella PCR Cancelled Stool Sapovirus (PCR) Cancelled Stl Shigella/EIEC PCR Cancelled St Y.enterocolitica PCR Cancelled Stool Vibrio (PCR) Cancelled Stl Vibrio cholerae PCR Cancelled Stl Norovirus GI/GII PCR Cancelled Preliminary micro results at discharge 02/01/24 15:01 Blood Culture - Preliminary Blood - Venous No growth after 48 hours. 02/01/24 14:56 Blood Culture - Preliminary Blood - Venous No growth after 48 hours. Imaging Chest x-ray: Radiologist's impression: ITS Impressions Abdomen/Pelvis CT 02/01/24 15:[address]: [address] evidence of acute appendicitis. 2. Featureless descending colon with submucosal hypodensity, which can be seen with inflammatory bowel disease. Clinical correlation is advised. 3. Punctate nonobstructing right renal upper pole calculus. Fleischner guidelines were followed. Discharge Plan Discharge Anticipated Discharge Date/Time: 02/03/24 18:03 Patient Disposition: Home, Self-Care Discharge Diagnosis: possible resolving colitis Referrals: Maya Peraza FNP [Primary Care Provider] - 1 Week Discharge Medications: Continued sertraline 100 mg tablet 200 mg PO DAILY bupropion HCl 150 mg tablet extended release 24 hr 150 mg PO QAM Discharge Orders: Discharge Order (Routine); Ordered 02/03/24 Ordered By: Mamadou Gatica Diet: Advance to usual diet Activity on Discharge: As tolerated Stand Alone Forms: Patient Portal Discharge page Care Plan Goals: Patient was admitted for intractable nausea vomiting and diarrhea: Patient was started on bowel rest, IV hydration and seen by GI ,subsequently patient was prepped with GoLYTELY and colonoscopy done: CT abdomen: Featureless descending colon with submucosal hypodensity, Colonoscopy so shows resolving colitis, random biopsies were obtained from the right and left colon: Discussed with GI- patient has resolving colitis, asymptomatic, defer antibiotics,, tolerating diet, blood culture negative at 48 hours. Leukocytosis: Monitor CBC out patiently possibly reactive to colitis. Monitor CBC out patiently, follow-up with PCP and GI Health Concerns: As above. Plan of Treatment: As above. Assessment: As above. Discharge Date/Time: 02/03/24 18:30
--- NOTE | 2024-02-03 18:31 | PC.NURSE ---
Pt cleared for discharge, discharge instructions reviewed with pt. iv removed. pt denied pain, no complaints.
== END 2024-02-03 18:30 | disposition home or self-care (01) | DRG 387 ==
LOC: HO.ED 16:05 → HO.EDOVER 19:44
PROVIDERS: Internal Medicine Gastroenterology; Physician Assistant; Admitting Provider Hospitalist; Emergency Provider Student in an Organized Health Care Education/Training Program; PCP Nurse Practitioner Family; Visit Provider Internal Medicine
PROC: 0DJD8ZZ Inspection of Lower Intestinal Tract, Via Natural or Artificial Opening Endoscopic (ICD-10-PCS; CPT 45378; principal; 2024-02-03 14:10)
DX: K51.511 Left sided colitis with rectal bleeding (principal); F43.10 Post-traumatic stress disorder, unspecified; F41.9 Anxiety disorder, unspecified; Z20.822 Contact with and (suspected) exposure to COVID-19; Z79.899 Other long term (current) drug therapy
CPT/HCPCS: 0241U; 36415; 74177; 80053; 82272; 83605; 83690; 84702; 85025; 85652; 86140; 87040; 87493; 88305; 99285; J2270; J2405; J2704; J7120; Q9967

== ENCOUNTER → 2024-02-01 12:15 | Outpatient (BNV) | payer OTHER, SELFPAY | PROVIDERS: Emergency Provider Student in an Organized Health Care Education/Training Program; PCP Nurse Practitioner Family; Visit Provider Hospitalist | DX: R11.2 Nausea with vomiting, unspecified (principal); R10.9 Unspecified abdominal pain; R93.3 Abnormal findings on diagnostic imaging of other parts of digestive tract; K62.5 Hemorrhage of anus and rectum | CPT/HCPCS: 99223; 99233; 99239 ==

== ENCOUNTER → 2024-02-01 17:15 | Outpatient (BNV) | payer OTHER, SELFPAY | PROVIDERS: Admitting Provider Hospitalist; Emergency Provider Student in an Organized Health Care Education/Training Program; PCP Nurse Practitioner Family; Visit Provider Internal Medicine Gastroenterology | DX: R11.2 Nausea with vomiting, unspecified (principal); R10.9 Unspecified abdominal pain; R93.3 Abnormal findings on diagnostic imaging of other parts of digestive tract; K62.5 Hemorrhage of anus and rectum | CPT/HCPCS: 45380; 99222 ==